=== PATIENT | female | born 1945 | race Caucasian/White ===

== ENCOUNTER 2020-02-17 13:25 | Emergency (ER) | payer OTHER ==
[~2020-02-17] VITALS: Ht 154.9 cm; Wt 69.4 kg
[2020-02-17 14:01] VITALS: Ht 154.9 cm; Wt 69.4 kg
[2020-02-17 16:28] LABS: RED CELL DISTRIBUTION WIDTH 16.1 % (12.3-17.7)
[2020-02-17 16:40] LABS: CALCIUM 8.7 mg/dL (8.5-10.1); CHLORIDE SERUM 99 mmol/L (98-107); CREATININE SERUM 1.2 mg/dL (0.6-1.0); GLUCOSE SERUM 153 mg/dL (74-106); POTASSIUM SERUM 4.8 mmol/L (3.5-5.1); SODIUM SERUM 134 mmol/L (136-145)
[2020-02-17 16:42] LABS: BAND NEUTROPHIL 0 % (0-10); MONOCYTE 8 % (0-7); SEGMENTED NEUTROPHILS 58 % (37-75)
[2020-02-17 16:43] LABS: BASOPHIL 0 % (0-2); rbc morphology (normal/abnorm) ABNORMAL (NORMAL)
[2020-02-17 16:45] LABS: PLATELET COUNT 583 x10^3mcL (179-408)
[2020-02-17 16:51] LABS: ALBUMIN 3.3 g/dL (3.4-5.0); ALKALINE PHOSPHATASE 96 U/L (46-116); ALT/SGPT 20 U/L (14-59); AST/SGOT 21 U/L (15-37); BILIRUBIN TOTAL 0.3 mg/dL (0.20-1.00); CHOLESTEROL 123 mg/dL (<200); CHOLESTEROL/HDL RATIO 3.5; HDL CHOLESTEROL 35 mg/dL (40-60); TOTAL PROTEIN, SERUM 7.7 g/dL (6.4-8.2); TRIGLYCERIDES 196 mg/dL (<150)
[2020-02-18 04:39] VITALS: BP 150/79
== END 2020-02-18 04:39 | disposition home or self-care (01) ==
LOC: ED 13:25
PROVIDERS: Emergency Medicine
DX: G43.909 Migraine, unspecified, not intractable, without status migrainosus (principal); U07.1 COVID-19
CPT/HCPCS: 87804; J1885; Q9967; U0003